=== PATIENT | male | born 1950 | race Native Hawaiian/Other Pacific Islander ===

== ENCOUNTER 2019-11-18 10:20 | Outpatient (CLI) | payer OTHER, BC ==
[~2019-11-18 10:20] MED LIST: APRODINE1 TAB PO; BAYER ADVANCED325 MG OR; INSU100I2 SC; LISI5TAB10 PO; METFTAB PO; SIMV20TA2 PO; TEMA30CA18 PO
[2019-11-18 10:53] LABS: PLATELET COUNT 233 K/uL (142-355)
[2019-11-18 11:15] LABS: POTASSIUM 4.2 mmol/L (3.6-5.2)
== END 2019-11-18 19:07 | disposition home or self-care (01) ==
LOC: LAB 10:20
PROVIDERS: Internal Medicine
DX: E11.9 Type 2 diabetes mellitus without complications (principal); E78.00 Pure hypercholesterolemia, unspecified; D51.0 Vitamin B12 deficiency anemia due to intrinsic factor deficiency; Z12.5 Encounter for screening for malignant neoplasm of prostate; N40.0 Benign prostatic hyperplasia without lower urinary tract symptoms
CPT/HCPCS: 80053; 80061; 81000; 82043; 82570; 82607; 83036; 84153; 85027

== ENCOUNTER 2020-06-21 07:59 | Outpatient (CLI) | payer OTHER, BC | END 2020-06-21 19:30 | disposition home or self-care (01) | LOC: US 07:59 | PROVIDERS: ATTEND Internal Medicine | DX: I71.4 Abdominal aortic aneurysm, without rupture (principal); R10.11 Right upper quadrant pain ==

== ENCOUNTER 2020-07-07 07:58 | Outpatient (CLI) | payer OTHER, BC | END 2020-07-07 22:56 | disposition home or self-care (01) | LOC: NM 07:58 | PROVIDERS: ATTEND Internal Medicine | DX: K80.20 Calculus of gallbladder without cholecystitis without obstruction (principal) | CPT/HCPCS: A9537 ==

== ENCOUNTER 2020-12-12 10:38 | Outpatient (CLI) | payer OTHER, BC | END 2020-12-12 19:15 | disposition home or self-care (01) | LOC: RESP 10:38 | PROVIDERS: ATTEND Specialist | DX: G56.01 Carpal tunnel syndrome, right upper limb (principal); G56.21 Lesion of ulnar nerve, right upper limb | CPT/HCPCS: 95885; 95909 ==

== ENCOUNTER 2021-05-31 16:08 | Outpatient (CLI) | payer OTHER, BC ==
[2021-05-31 16:57] LABS: PLATELET COUNT 217 K/uL (142-355)
[2021-05-31 17:18] LABS: POTASSIUM 4.6 mmol/L (3.6-5.2)
== END 2021-05-31 19:27 | disposition home or self-care (01) ==
LOC: LAB 16:08
PROVIDERS: ATTEND Internal Medicine
DX: E11.9 Type 2 diabetes mellitus without complications (principal)
CPT/HCPCS: 80053; 80061; 83036; 84439; 84443; 85027

== ENCOUNTER 2021-11-27 13:33 | Outpatient (CLI) | payer OTHER, BC ==
[2021-11-27 14:01] LABS: PLATELET COUNT 183 K/uL (142-355)
[2021-11-27 14:27] LABS: POTASSIUM 4.5 mmol/L (3.6-5.2)
== END 2021-11-27 19:16 | disposition home or self-care (01) ==
LOC: LAB 13:33
PROVIDERS: ATTEND Internal Medicine
DX: E11.9 Type 2 diabetes mellitus without complications (principal); I10 Essential (primary) hypertension; I25.10 Atherosclerotic heart disease of native coronary artery without angina pectoris; E78.00 Pure hypercholesterolemia, unspecified; I48.91 Unspecified atrial fibrillation; N40.0 Benign prostatic hyperplasia without lower urinary tract symptoms; D51.0 Vitamin B12 deficiency anemia due to intrinsic factor deficiency
CPT/HCPCS: 80053; 80061; 81002; 83036; 84153; 84439; 84443; 85027

== ENCOUNTER 2022-02-19 13:05 | Outpatient (CLI) | payer OTHER, BC ==
[2022-02-19 13:27] LABS: PLATELET COUNT 190 K/uL (142-355)
[2022-02-19 13:40] LABS: POTASSIUM 4.3 mmol/L (3.6-5.2)
== END 2022-02-19 19:39 | disposition home or self-care (01) ==
LOC: LAB 13:05
PROVIDERS: ATTEND Internal Medicine
DX: E11.9 Type 2 diabetes mellitus without complications (principal)
CPT/HCPCS: 80053; 80061; 81002; 82043; 83036; 84439; 84443; 85027

== ENCOUNTER 2022-05-01 14:18 | Outpatient (CLI) | payer OTHER, BC ==
[2022-05-01 14:39] LABS: POTASSIUM 4.6 mmol/L (3.6-5.2)
== END 2022-05-01 19:21 | disposition home or self-care (01) ==
LOC: LAB 14:18
PROVIDERS: ATTEND Internal Medicine
DX: R25.2 Cramp and spasm (principal)
CPT/HCPCS: 80053; 83735

== ENCOUNTER 2022-08-07 11:57 | Outpatient (CLI) | payer OTHER, BC ==
[2022-08-07 12:11] LABS: PLATELET COUNT 234 K/uL (142-355)
[2022-08-07 13:40] LABS: POTASSIUM 4.4 mmol/L (3.6-5.2)
== END 2022-08-07 19:15 | disposition home or self-care (01) ==
LOC: LAB 11:57
PROVIDERS: ATTEND Internal Medicine
DX: E11.9 Type 2 diabetes mellitus without complications (principal); N40.0 Benign prostatic hyperplasia without lower urinary tract symptoms
CPT/HCPCS: 80053; 80061; 82607; 83036; 84153; 84439; 84443; 84550; 85027

== ENCOUNTER 2022-08-09 16:15 | Outpatient (CLI) | payer OTHER, BC | END 2022-08-09 22:58 | disposition home or self-care (01) | LOC: RAD 16:15 | PROVIDERS: ATTEND Internal Medicine | DX: M51.9 Unspecified thoracic, thoracolumbar and lumbosacral intervertebral disc disorder (principal) ==

== ENCOUNTER 2022-09-25 13:19 | Outpatient (CLI) | payer OTHER, BC ==
[2022-09-25 13:27] LABS: PLATELET COUNT 214 K/uL (142-355)
[2022-09-25 13:49] LABS: POTASSIUM 4.6 mmol/L (3.6-5.2)
== END 2022-09-25 19:37 | disposition home or self-care (01) ==
LOC: LAB 13:19
PROVIDERS: ATTEND Internal Medicine
DX: M79.10 Myalgia, unspecified site (principal)
CPT/HCPCS: 80053; 82550; 84550; 85027; 85652; 86140

== ENCOUNTER 2022-10-05 13:58 | Emergency (ER) | payer OTHER, BC ==
[~2022-10-05] VITALS: Ht 172.7 cm; Wt 82.6 kg
[2022-10-05 15:45] VITALS: BP 120/62
== END 2022-10-05 15:45 | disposition home or self-care (01) ==
LOC: ED 13:58
DX: S30.0XXA Contusion of lower back and pelvis, initial encounter (principal); W01.0XXA Fall on same level from slipping, tripping and stumbling without subsequent striking against object, initial encounter
CPT/HCPCS: 99283

== ENCOUNTER 2022-10-07 08:34 | Emergency (ER) | payer OTHER, BC ==
[~2022-10-07] VITALS: Ht 172.7 cm; Wt 82.6 kg
[2022-10-07 08:43] VITALS: BP 136/45; TEMP 98.2
[2022-10-07 09:47] LABS: PLATELET COUNT 262 K/uL (142-355)
[2022-10-07 09:59] LABS: POTASSIUM 4.7 mmol/L (3.6-5.2)
== END 2022-10-07 12:05 | disposition home or self-care (01) ==
LOC: ED 08:34
PROVIDERS: Emergency Medicine Emergency Medical Services
DX: K80.80 Other cholelithiasis without obstruction (principal); R10.9 Unspecified abdominal pain
CPT/HCPCS: 80053; 81002; 84484; 85027; 85610; 87040; 93005; 94664; 96361; 96374; 99284; J2270; J2405; Q9963

== ENCOUNTER 2022-10-08 08:32 | Emergency (ER) | payer OTHER, BC ==
[~2022-10-08] VITALS: Ht 172.7 cm; Wt 81.6 kg
[2022-10-08 09:59] LABS: PLATELET COUNT 274 K/uL (142-355)
[2022-10-08 14:05] VITALS: BP 129/53; TEMP 97.9
== END 2022-10-08 14:05 | disposition short-term general hospital (02) ==
LOC: ED 08:32
PROVIDERS: Emergency Medicine
DX: K52.89 Other specified noninfective gastroenteritis and colitis (principal); J18.8 Other pneumonia, unspecified organism; S22.31XA Fracture of one rib, right side, initial encounter for closed fracture; X58.XXXA Exposure to other specified factors, initial encounter
CPT/HCPCS: 36415; 80053; 82948; 83690; 85027; 96361; 96365; 96375; 96376; 99284; J1885; J2270; J2405; J2543; Q9963

== ENCOUNTER 2022-10-21 07:42 | Outpatient (CLI) | payer OTHER, BC | END 2022-10-21 20:02 | disposition home or self-care (01) | LOC: NM 07:42 | PROVIDERS: ATTEND Internal Medicine | DX: R10.9 Unspecified abdominal pain (principal); K80.20 Calculus of gallbladder without cholecystitis without obstruction | CPT/HCPCS: A9537 ==

== ENCOUNTER 2023-01-15 10:42 | Emergency (ER) | payer OTHER, BC ==
[~2023-01-15] VITALS: Ht 172.7 cm; Wt 76.2 kg
[2023-01-15 10:42] VITALS: BP 137/58; TEMP 98.5
== END 2023-01-15 12:05 | disposition home or self-care (01) ==
LOC: ED 10:42
DX: S68.122A Partial traumatic metacarpophalangeal amputation of right middle finger, initial encounter (principal); S62.602B Fracture of unspecified phalanx of right middle finger, initial encounter for open fracture; W31.9XXA Contact with unspecified machinery, initial encounter; Y99.0 Civilian activity done for income or pay
CPT/HCPCS: 99283; J2001